=== PATIENT | male | born 1960 | race Caucasian/White ===

== ENCOUNTER 2023-03-18 13:45 | Outpatient (CLI) | payer OTHER ==
[2023-03-18] MEDS ORDERED: Iopamidol 370 76% 100 ML VIAL ONE (15:17)
== END 2023-03-18 13:46 | disposition home or self-care (01) ==
LOC: CT 13:45
PROVIDERS: ATTEND Family Medicine
DX: R51.9 Headache, unspecified (principal); M43.6 Torticollis; I38 Endocarditis, valve unspecified; M79.81 Nontraumatic hematoma of soft tissue
CPT/HCPCS: 70496; 70498; 71275; 82565; Q9967

== ENCOUNTER 2023-03-19 12:56 | Outpatient (CLI) | payer OTHER ==
[~2023-03-19 12:56] MED LIST: Iopamidol 370 76% 100 ML VIAL ONE
== END 2023-03-19 12:57 | disposition home or self-care (01) ==
LOC: CT 12:56
PROVIDERS: ATTEND Family Medicine
DX: R51.9 Headache, unspecified (principal); M43.6 Torticollis; I38 Endocarditis, valve unspecified; M79.81 Nontraumatic hematoma of soft tissue; N28.9 Disorder of kidney and ureter, unspecified
CPT/HCPCS: Q9967

== ENCOUNTER 2023-05-25 07:49 | Outpatient (CLI) | payer OTHER | END 2023-05-25 07:50 | disposition home or self-care (01) | LOC: SCSMRI 07:49 | PROVIDERS: ATTEND Family Medicine | DX: R93.429 Abnormal radiologic findings on diagnostic imaging of unspecified kidney (principal) | CPT/HCPCS: 74183 ==